=== PATIENT | female | born 2000 ===

== ENCOUNTER 2020-12-21 17:29 | Emergency (ER) | payer BC, OTHER ==
[~2020-12-21] VITALS: Ht 157.5 cm; Wt 45.4 kg
[2020-12-21] MEDS ORDERED: PEPCID AC20 MG PO (22:14)
[2020-12-21] MEDS ORDERED: LEVSIN/SL0.125 MG SL (22:14)
== END 2020-12-21 22:43 | disposition home or self-care (01) ==
LOC: ER 17:29 → EMR PED 17:29 → ER 19:56
DX: K29.60 Other gastritis without bleeding (principal)